=== PATIENT | male | born 1950 | race Caucasian/White ===

== ENCOUNTER 2017-09-23 11:12 | Emergency (ER) | payer OTHER ==
[~2017-09-23] VITALS: Ht 167.6 cm; Wt 122.5 kg
[~2017-09-23 11:12] MED LIST: ASPIRIN325; ASPIRIN325 PO; BACTRIM DS TAB1 EACH PO; BENADRYL25 MG PO; CARVEDILOL6.25 MG; COZAAR 50 MG TA50 M1 PO; CYCLOBENZAPRINE5 MG PO; ETODOLAC 400 M400 M1; GLUCOPHAGE500 MG PO; GLUCOTROL5 MG PO; HALDOL 0.5 MG0.5 MG PO; HALOPERIDOL 5 MG5 M1; HALOPERIDOL 5 MG5 M1 PO; HYDROCHLOROTHIA25 M1; HYDROCODON-ACE1 EAC8 PO; HYDROCODONE-AP1 EAC6 PO; HYTRIN 2MG CAPSU2 M1; IMDUR 30 MG TAB30 M1 PO; LEVAQUIN 500 M500 M2 PO; LOPRESSOR50 PO; NEURONTIN 300300 M1 PO; NITROGLYCERIN0.4 MG PO; PERCOCET 5-3251 EACH; PERCOCET PO; POTASSIUM CITRATE PO; PRAVACHOL40 MG PO; PREDNISONE 10 M10 MG PO; PROTONIX40 M1 PO; PROZAC 20 MG20 M1; PROZAC 20 MG20 MG PO; PYRIDIUM200 MG PO; ROBAXIN 750 MG750 M1 PO; STOOL SOFTENER1 EAC2
[2017-09-23] MEDS ORDERED: PREDNISONE 20 M20 MG PO (12:33)
[2017-09-23] MEDS ORDERED: ZPAK PO (12:33)
[2017-09-23] MEDS ORDERED: HYDROCODONE-AP1 EAC6 PO (12:33)
[2017-09-23 13:00] VITALS: BP 154/70
== END 2017-09-23 13:01 | disposition home or self-care (01) ==
LOC: M.ERS 11:12
DX: J44.1 Chronic obstructive pulmonary disease with (acute) exacerbation (principal); M25.50 Pain in unspecified joint; I10 Essential (primary) hypertension; E11.9 Type 2 diabetes mellitus without complications; I25.2 Old myocardial infarction; Z88.1 Allergy status to other antibiotic agents; Z88.6 Allergy status to analgesic agent

== ENCOUNTER 2018-01-28 18:52 | Emergency (ER) | payer OTHER ==
[~2018-01-28] VITALS: Ht 167.6 cm; Wt 127.0 kg
[~2018-01-28 18:52] MED LIST changes: +PREDNISONE 20 M20 MG PO; +ZPAK PO
[2018-01-28 19:46] LABS: ABSOLUTE BASOPHILS 0.1 thou/uL (0.0-0.2); ABSOLUTE EOSINOPHILS 0.1 thou/uL (0.0-0.7); ABSOLUTE LYMPHOCYTES 2.5 thou/uL (0.8-5.3); ABSOLUTE MONOCYTES 0.6 thou/uL (0.0-1.2); ABSOLUTE NEUTROPHILS 6.6 thou/uL (1.6-8.1); BASOPHILS 0.6 %; EOSINOPHILS 1.1 %; HEMATOCRIT 44.9 % (42.0-52.0); HEMOGLOBIN 15.2 gm/dL (14.0-18.0); LYMPHOCYTES 24.9 %; MCH 33.6 pg (26.0-34.0); MCHC 33.8 g/dL (28.0-37.0); MCV 99.2 fL (80.0-100.0); MONOCYTES 5.9 %; MPV 7.3 fl. (7.2-11.1); NUCLEATED RBCS 0 /100WBC; PLATELET COUNT* 180 thou/uL (150-400); POLYS 67.5 %; RBC 4.52 mil/uL (4.50-6.00); RDW-CV 14.5 % (10.5-14.5); WBC 9.9 thou/uL (4.0-11.0)
[2018-01-28 19:53] LABS: CALCIUM 8.6 mg/dL (8.5-10.1); POTASSIUM 4.6 mmol/L (3.5-5.1)
[2018-01-28 19:58] LABS: ALBUMIN 3.2 g/dL (3.4-5.0); TOTAL BILIRUBIN 0.5 mg/dL (<0.1-1.0)
[2018-01-28] MEDS ORDERED: PREDNISONE 20 M20 M1 PO (20:23)
[2018-01-28] MEDS ORDERED: NORCO 5-325 TA1 EACH PO (20:23)
[2018-01-28] MEDS ORDERED: FLEXERIL PO (20:23)
[2018-01-28 20:41] VITALS: BP 140/78
== END 2018-01-28 20:43 | disposition home or self-care (01) ==
LOC: M.ERS 18:52
PROVIDERS: Family Medicine
DX: M54.32 Sciatica, left side (principal); I10 Essential (primary) hypertension; G47.30 Sleep apnea, unspecified; E11.9 Type 2 diabetes mellitus without complications; F17.210 Nicotine dependence, cigarettes, uncomplicated; Z88.1 Allergy status to other antibiotic agents; Z88.8 Allergy status to other drugs, medicaments and biological substances; Z95.1 Presence of aortocoronary bypass graft; Z87.442 Personal history of urinary calculi

== ENCOUNTER 2018-03-22 11:20 | Inpatient (IN) | payer OTHER ==
[~2018-03-22] VITALS: Ht 167.6 cm; Wt 125.6 kg
[~2018-03-22 11:20] MED LIST changes: +FLEXERIL PO; +NORCO 5-325 TA1 EACH PO; +PREDNISONE 20 M20 M1 PO
[2018-03-22 11:25] VITALS: BP 184/85
[2018-03-22 12:05] LABS: HEMATOCRIT 44.3 % (42.0-52.0); HEMOGLOBIN 14.9 gm/dL (14.0-18.0); MCH 33.3 pg (26.0-34.0); MCHC 33.6 g/dL (28.0-37.0); MCV 99.2 fL (80.0-100.0); MPV 7.5 fl. (7.2-11.1); NUCLEATED RBCS 0 /100WBC; PLATELET COUNT* 153 thou/uL (150-400); RBC 4.47 mil/uL (4.50-6.00); RDW-CV 14.1 % (10.5-14.5); WBC 12.3 thou/uL (4.0-11.0)
[2018-03-22 12:15] LABS: CALCIUM 8.6 mg/dL (8.5-10.1); CREATININE 1.1 mg/dL (0.6-1.3); POTASSIUM 4.3 mmol/L (3.5-5.1)
[2018-03-22 12:19] LABS: ALBUMIN 3.2 g/dL (3.4-5.0); MAGNESIUM 1.4 mg/dL (1.8-2.4); TOTAL BILIRUBIN 1.8 mg/dL (<0.1-1.0); TOTAL PROTEIN 7.8 g/dL (6.4-8.2)
[2018-03-22 12:24] LABS: BE -1.8 mmol/L (-2 to +3); HCO3 20.2 mmol/L (22.0-26.0); PCO2 28.1 mmHg (35.0-45.0); pH 7.474 (7.340-7.450)
[2018-03-22 12:36] LABS: ABSOLUTE EOSINOPHILS 0.1 thou/uL (0.0-0.7); ABSOLUTE LYMPHOCYTES 1.2 thou/uL (0.8-5.3)
[2018-03-22 12:37] LABS: PLATELET ESTIMATE ADEQUATE
[2018-03-22 15:17] LABS: URINE BILIRUBIN NEGATIVE (Negative); URINE BLOOD 2+ (Negative); URINE CLARITY CLOUDY; URINE COLOR ORANGE; URINE GLUCOSE-RANDOM 1+ (Negative); URINE KETONES 1+ (Negative); URINE PROTEIN 1+ (Negative)
[2018-03-22 15:19] LABS: URINE LEUKOCYTES-REFLEX 3+ (Negative); URINE NITRITE-REFLEX POSITIVE (Negative)
[2018-03-22 15:26] LABS: BACTERIA-REFLEX >30 Many /HPF (None Seen); CASTS None Seen /LPF (None Seen); CRYSTALS None Seen /LPF (None Seen); SQUAMOUS NONE SEEN /LPF (0-3); URINE RBC 3-10 Few /HPF (0-2); URINE WBC-REFLEX >25 Many /HPF (0-5)
[2018-03-22 15:29] LABS: APTT 29.8 Seconds (25.0-31.3); INR 1.1; PROTIME 11.6 Seconds (9.20-11.50)
[2018-03-22 15:42] LABS: NT-PRO BRAIN NAT PEPTIDE 1300 pg/mL (<300); TROPONIN-I LEVEL <0.06 ng/mL (<0.06)
[2018-03-22 17:00] VITALS: BP 154/88
[2018-03-22 17:20] VITALS: BP 139/76
--- NOTE | 2018-03-22 18:28 | NUR ---
ASSUMED PT CARE AT 0730, FULL ASSESMENT DONE CHARTED. PT A/O X4, DENIES PAIN, STATES "I JUST FEEL BAD", NO FEVER, ALL OTHER VSS, SR/BBB ON THE MONITOR. PT PROVIDED WITH DINNER, GF AT BEDSIDE, BED ALARM ON, PT INSTRUCED ON USE OF CALL LIGHT. ADMISSION HX AND ASSESMENT DONE CHARTED. WILL CONTINUE WITH PLAN OF CARE.
--- NOTE | 2018-03-22 18:48 | NUR ---
PT ARRIVED TO ROOM 214 FROM ER AT APPROX 1710, PT A/O X4, DENIES PAIN, STATES "I JUST FEEL BAD", AFEBRILE, ALL OTHER VSS, SR/BBB ON THE MONITOR. PT PROVIDED WITH DINNER, GF AT BEDSIDE, BED ALARM ON, PT INSTRUCTED ON USE OF CALL LIGHT. ADMISSION HX AND ASSESMENT DONE CHARTED. WILL CONTINUE WITH PLAN OF CARE.
[2018-03-22 19:30] VITALS: BP 142/77
[2018-03-22 20:01] LABS: MAGNESIUM 1.6 mg/dL (1.8-2.4)
[2018-03-23 04:00] VITALS: BP 169/93
[2018-03-23 05:16] LABS: HEMATOCRIT 41.1 % (42.0-52.0); HEMOGLOBIN 13.7 gm/dL (14.0-18.0); MCH 33.7 pg (26.0-34.0); MCHC 33.4 g/dL (28.0-37.0); MCV 100.9 fL (80.0-100.0); MPV 8.1 fl. (7.2-11.1); RBC 4.08 mil/uL (4.50-6.00); RDW-CV 13.7 % (10.5-14.5); WBC 14.6 thou/uL (4.0-11.0)
[2018-03-23 05:47] LABS: ALBUMIN 2.9 g/dL (3.4-5.0); CREATININE 0.8 mg/dL (0.6-1.3); MAGNESIUM 2.3 mg/dL (1.8-2.4); POTASSIUM 4.1 mmol/L (3.5-5.1); TOTAL BILIRUBIN 0.8 mg/dL (<0.1-1.0); TOTAL PROTEIN 6.8 g/dL (6.4-8.2)
[2018-03-23 08:00] VITALS: BP 156/94
--- NOTE | 2018-03-23 08:11 | NUR ---
RECEIVED REPORT AND ASSUMED CARE AT 1900. VSS. CARDIAC MONITORING IN PLACE, PT DENIES ANY COMPLAINTS OF PAIN. ASSESSMENT COMPLETED CHARTED. DISCUSSED PLAN OF CARE WITH PT, VERBALIZED UNDERSTANDING. MEDICATION ADMIN PER ORDERS. PT UP WITH ASSIST, ON RA WHILE AWAKE, USES CPAP AT [facility]. BED LOCKED IN LOWEST POSITION, CALL LIGHT WIHTIN REACH, BED ALARM ON. HOURLY ROUDNING COMPLETED AND ALL NEEDS MET. WILL CONTINUE TO MONITOR
[2018-03-23 12:12] VITALS: BP 152/87
[2018-03-23 16:00] VITALS: BP 147/75
--- NOTE | 2018-03-23 17:01 | EKG ---
[place] [address] ELECTROCARDIOGRAM REPORT Name: YOSEF LAWSON Room: [address] ADM IN M.R.#: [id number] Admission: 03/22/18 Attend Phys: Wilfred Campbell, Discharge: Date of : 50 Report #: [id number] THIS REPORT FOR: //name// [facility] ED Test Date: 2018-03-22 Test Time: 12:26:51 Pat Name: YOSEF LAWSON Department: Room: [facility] Gender: M Project Systems Engineer: RAFFY : 1950 Requested By: Vane Holder Order Number: [id number] MD: Emmanuel Reyez Measurements Intervals [place] Rate: 70 P: -12 [place]: 208 QRS: -68 QRSD: 145 T: 5 QT: 462 QTc: 499 Interpretive Statements Sinus rhythm Right bundle branch block Inferior infarct, old Compared to ECG 03/19/2016 13:49:56 First degree AV block no longer present Myocardial infarct finding still present Electronically Signed On 03-23-2018 17:01:00 CDT by Emmanuel Reyez [email or web address] <ELECTRONICALLY SIGNED> By: Emmanuel Reyez MD, FACC 03/23/18 1701 1226 1226 Emmanuel Reyez MD, [facility] /EPI
--- NOTE | 2018-03-23 18:54 | NUR ---
PATIENT RESTING IN BED. UP WITH ASSIST X1. IV FLUIDS PER ORDERS. NEW RIGHT AC IV. TJNET HAS REMAINED FEBRILE TODAY BUT HAS C/O PERIODIC CHILLS. HOURLY ROUNDING COMPLETDFOR PATIENT SAFETY.
[2018-03-23 20:03] VITALS: BP 180/90
[2018-03-24] VITALS: BP 129/71
[2018-03-24 04:00] VITALS: BP 157/87
[2018-03-24 04:53] LABS: HEMATOCRIT 43.5 % (42.0-52.0); HEMOGLOBIN 14.5 gm/dL (14.0-18.0); MCH 33.3 pg (26.0-34.0); MCHC 33.3 g/dL (28.0-37.0); MCV 99.9 fL (80.0-100.0); MPV 7.6 fl. (7.2-11.1); RBC 4.35 mil/uL (4.50-6.00); RDW-CV 13.8 % (10.5-14.5); WBC 10.6 thou/uL (4.0-11.0)
--- NOTE | 2018-03-24 05:35 | NUR ---
RECEIVED REPORT AND ASSUMED CARE AT 1900. LOW GRADE FEVER, OTHERWISE VSS. CARDIAC MONITORING IN PLACE. PT NAUSEATED, PHYSICIAN NOTIFIED. ORDERS RECEIVED AND PRN MEDICATION ADMIN. PT UP WITH ASSIST, ON 2L NC. PATIENT MAINTAINED FEVER THROUGH SHIFT, PRN MEDICATION ADMIN, PHYSICIAN NOTIFIED. MEDICATION ADMIN PER EMAR. BED LOCKED IN LOWEST POSITION, CALL LIGHT WITHIN REACH. BED ALARM ON. PT WEARS CPAP AT [facility] AT HOME, REFUSING TO WEAR THIS EVENING. HOURLY ROUNDING COMPLETED AND ALL NEEDS MET. WILL CONTINUE TO MONITOR
[2018-03-24 05:46] LABS: ANION GAP 8 mmol/L (7-16); BUN 17 mg/dL (7-18); CALCIUM 7.9 mg/dL (8.5-10.1); CHLORIDE 101 mmol/L (98-107); CO2 24 mmol/L (21-32); CREATININE 1.1 mg/dL (0.6-1.3); GLUCOSE 151 mg/dL (70-99); MAGNESIUM 1.7 mg/dL (1.8-2.4); POTASSIUM 4.3 mmol/L (3.5-5.1); SODIUM 133 mmol/L (136-145); TROPONIN-I LEVEL <0.06 ng/mL (<0.06)
[2018-03-24 08:00] VITALS: BP 136/75
[2018-03-24 11:39] VITALS: BP 103/62
--- NOTE | 2018-03-24 12:12 | NUR ---
Pt is A&O. Resides at home with his S/O. SO in room at bedside and is too very sick and reports continuous vomitting. Pt uses a cane for mobility. No hx of HH or SNF. No home o2. [facility]. Goal is to return home at dc, and Pt wants HH. CM to fax dc orders to [facility] [place] [phone], p: [phone].
[2018-03-24 15:41] VITALS: BP 145/81
--- NOTE | 2018-03-24 18:56 | NUR ---
BIGG TRANSFERING TO ROOM 109. REPORT CALLED TO RECIEVING RN. HOURLY ROUNDING COMPLETD FOR PATIENT SAFETY. VITAL SIGNS STABLE. PATIENT EDUCATED IN THE NEED TO UTILIZE CPAP TONIGHT. BIGG GIRLFRIEN SENT HOME WITH DAUGHTER.
[2018-03-24 19:50] VITALS: BP 113/61
--- NOTE | 2018-03-24 19:50 | NUR ---
PATIENT ARRIVED ON UNIT AT 1950. ASSISTED TO UNIT BED. ORIENTED TO UNIT AND CONTROLS. VITAL SIGNS STABLE ON ROOM AIR. IV PATENT AND INFUSING IN THE RIGHT AC. DENIES PAIN OR NAUSEA. CALL LIGHT WITHIN REACH. NURSING WILL CONTINUE TO MONITOR.
[2018-03-25] VITALS: BP 138/54
[2018-03-25 04:10] VITALS: BP 149/85
[2018-03-25 04:25] LABS: HEMATOCRIT 38.6 % (42.0-52.0); HEMOGLOBIN 13.1 gm/dL (14.0-18.0); MCH 33.9 pg (26.0-34.0); MCV 99.7 fL (80.0-100.0); MPV 8.1 fl. (7.2-11.1); RBC 3.88 mil/uL (4.50-6.00); RDW-CV 13.8 % (10.5-14.5); WBC 8.8 thou/uL (4.0-11.0)
[2018-03-25 04:45] LABS: ALBUMIN 2.3 g/dL (3.4-5.0); CALCIUM 7.4 mg/dL (8.5-10.1); MAGNESIUM 1.4 mg/dL (1.8-2.4); POTASSIUM 3.8 mmol/L (3.5-5.1); TOTAL BILIRUBIN 0.8 mg/dL (<0.1-1.0); TOTAL PROTEIN 6.3 g/dL (6.4-8.2)
--- NOTE | 2018-03-25 05:00 | NUR ---
PATIENT REMAINS ALERT AND ORIENTED X4 THROUGHOUT SHIFT. VITAL SIGNS STABLE. CPAP IN PLACE THROUGOUT SHIFT. IV PATENT IN THE LEFT AC SALINE LOCKED. PATIENT IS HAVING TROUBLE TRANFERING STATING HE HAS BEEN FEELING WEAK. PAIN MANAGED WITH PO MEDICATION PER ORDERS. DENIES NAUSEA. TOLERATING DIET. HAS BEEN RESTLESS THROUGOUT NIGHT. BED ALARM IN PLACE. CALL LIGHT WITHIN REACH. NURSING WILL CONTINUE TO MONITOR.
[2018-03-25 08:00] VITALS: BP 158/85
--- NOTE | 2018-03-25 14:06 | NUR ---
Nutrition: Pt seen for high BMI. Pt was sleeping soundly at time of visit. BMI: 44.7. RD left handouts on wt mgmt on pt's bedside table. RD available if further education is desired. Low risk.
[2018-03-25 16:37] VITALS: BP 140/76
--- NOTE | 2018-03-25 18:17 | NUR ---
PATIENT HAS BEEN ALERT AND ORIENTED TODAY VERY PLEASANT. UP WITH STAND BY ASSIST AND USES THE URINAL. PATIENT HAS HAD STABLE VITAL SIGNS ON ROOM AIR TODAY. HAS HAD NO COMPLAINTS OF PAIN TODAY. CALL LIGHT IS IN REACH, WILL CONTINUE TO MONITOR.
[2018-03-25 21:00] VITALS: BP 131/83
[2018-03-26] VITALS: BP 114/60
[2018-03-26 04:00] VITALS: BP 142/63
[2018-03-26 04:18] LABS: HEMATOCRIT 40.4 % (42.0-52.0); HEMOGLOBIN 13.6 gm/dL (14.0-18.0); MCH 33.5 pg (26.0-34.0); MCHC 33.6 g/dL (28.0-37.0); MPV 8.2 fl. (7.2-11.1); RBC 4.04 mil/uL (4.50-6.00); RDW-CV 13.7 % (10.5-14.5); WBC 8.9 thou/uL (4.0-11.0)
[2018-03-26 04:29] LABS: CALCIUM 8.1 mg/dL (8.5-10.1); CREATININE 0.9 mg/dL (0.6-1.3); MAGNESIUM 1.7 mg/dL (1.8-2.4); POTASSIUM 4.3 mmol/L (3.5-5.1)
--- NOTE | 2018-03-26 05:11 | NUR ---
ASSUMED PT CARE AT 1930. NURSING ASSESSMENT COMPLETED AT START OF SHIFT. PT C/O FREQUENT DRY COUGH, WHEEZY/COARSE LUNG SOUNDS. NEW ORDERS FOR DUONEB BREATHING TREATMENTS. PT REFUSED CPAP THIS SHIFT. HOURLY ROUNDING COMPLETED. HIGH FALL PRECAUTIONS IN PLACE. CALL LIGHT WITHIN REACH.
[2018-03-26 08:00] VITALS: BP 110/68
[2018-03-26 15:42] VITALS: BP 113/68
--- NOTE | 2018-03-26 17:01 | NUR ---
SAW PT. HE WAS UP IN CHAIR. SON,WALTER AT BEDSIDE. DISCUSSED RECOMMENDATIONS OF THAT HE GO TO SNF AT DISCHARGE DUE TO WEAKNESS AND DECREASED WALKING DISTANCE YESTERDAY. HE SAID HE'S NOT TOO MUCH IN FAVOR OF THAT. HE THOUGHT HE WOULD LIKE HOME HEALTH. HE SAID HE DID NOT HAVE THERAPY TODAY. EFRAIN SPOKE WITH LICHA. SHE SAID PT.WAS TRIAGED TODAY DUE TO SO MANY JT.PT.S. SHE WILL PUT HIM ON LIST FOR FIRST THING IN THE AM. LEFT LIST OF IN NETWORK FACILITIES WITH PT. SON SAID HE COULD PROBABLY STAY A FEW DAYS WITH HIS DAD. CM WILL FOLLOW.
--- NOTE | 2018-03-26 17:11 | NUR ---
PT STATED HE DIDN'T FEEL WELL BUT WAS UNABLE TO DESCRIBE. PT HAS SAT IN CHAIR ALL DAY. AFEBRILE. PT ABLE TO MAKE NEEDS KNOWN, CALL LIGHT IN REACH
[2018-03-26 20:45] VITALS: BP 111/61
[2018-03-26 23:53] VITALS: BP 133/62
[2018-03-27 03:52] VITALS: BP 136/71
--- NOTE | 2018-03-27 05:17 | NUR ---
PATIENT REMAINS ALERT AND ORIENTED X4 THROUGHOUT SHIFT. VITAL SIGNS STABLE ON 2 LITERS OF OXYGEN PER NASAL CANNULA. IV PATENT IN THE LEFT AC SALINE LOCKED PER ORDERS. DENIES PAIN OR NAUSEA. TRANSFERS STANDBY TO THE CHAIR. TOLERATING DIET. REPOSITIONING SELF IN BED. RESTING COMFORTABLY THROUGHOUT THE NIGHT. CALL LIGHT WITHIN REACH. NURSING WILL CONTINUE TO MONITOR.
[2018-03-27 09:30] VITALS: BP 116/68
[2018-03-27] MEDS ORDERED: ASPIR-LOW81 MG PO (09:34)
[2018-03-27] MEDS ORDERED: MACROBID 100 M100 M1 PO (09:34)
[2018-03-27 11:44] VITALS: BP 116/68
[2018-03-27 11:46] VITALS: BP 116/68
[2018-03-27] MEDS ORDERED: ASPIR 8181 MG PO (12:10)
--- NOTE | 2018-03-27 14:13 | NUR ---
ORDER RECEIVED VIA CM FOR ROLLER WALKER FOR PT. PT HAS NOT BEEN USING RW DURING ADMIT. PT REPORTS USING CANE AT HOME. DISCUSSED POSSIBILITY THAT INSURANCE MAY NOT COVER WALKER WITHOUT DOCUMENTATION TO SUPPORT SAME. PT AND FAMILY DECLINED RW AT THIS TIME AND INDICATED THAT [facility]. RW RETURNED TO CONSIGNMENT CLOSET.
[2018-03-27 14:30] VITALS: BP 116/68
--- NOTE | 2018-03-27 14:33 | NUR ---
PATIENT HAS BEEN ALERT AND ORIENTED TODAY VERY PLEASANT. NO COMPLAINTS OF PAIN TODAY. VITAL SIGNS STABLE ON ROOM AIR TODAY HAS BEEN UP WITH THERAPY TODAY AND DOING WELL. DISCHARGE INSTRUCTIONS GIVEN ALONG WITH PRESCRIPTIONS AND QUESTIONS ANSWERED. PATIENT LEFT VIA WHEEL CHAIR WITH DAUGHTER TO GO HOME.
--- NOTE | 2018-03-27 14:59 | NUR ---
PT.DID MUCH BETTER WITH THERAPY TODAY. HE WALKED WITH HIS CANE WITH THE THERAPIST. WILL BE DISCHARGED WITH HOMEHEALTH. DISCUSSED WITH HIM. HE CHOSE [facility]. SPOKE WITH VISHAL/[facility] AND FAXED HER DISCHARGE ORDERS. ROSHNI CALLED ASKING WHO PT.'S PCP WAS. PT.COULD NOT REMEMBER BUT SAID HE WAS AT THE THE [facility]. CM CALLED TRANSITION NURSE THERE. HAD TO LEAVE A MESSAGE TO CALL CM BACK WITH NAME OF PT.'S
== END 2018-03-27 14:30 | disposition home health service (06) | DRG 872 ==
LOC: M.ERS 11:20 → M.2W 15:01 → M.TBA-ER 15:01 → M.2W 17:08 → M.ORTHSURG 03-24 19:00
PROVIDERS: Internal Medicine; Personal Emergency Response Attendant; ADMIT Family Medicine
PROC: 5A09357 Assistance with Respiratory Ventilation, Less than 24 Consecutive Hours, Continuous Positive Airway Pressure (ICD-10-PCS; principal; 2018-03-25)
DX: A41.9 Sepsis, unspecified organism (principal); N39.0 Urinary tract infection, site not specified; Z68.41 Body mass index [BMI] 40.0-44.9, adult; E44.1 Mild protein-calorie malnutrition; E83.42 Hypomagnesemia; J44.9 Chronic obstructive pulmonary disease, unspecified; I10 Essential (primary) hypertension; E66.01 Morbid (severe) obesity due to excess calories; D75.89 Other specified diseases of blood and blood-forming organs; E11.65 Type 2 diabetes mellitus with hyperglycemia; B96.20 Unspecified Escherichia coli [E. coli] as the cause of diseases classified elsewhere; F17.210 Nicotine dependence, cigarettes, uncomplicated; Z79.84 Long term (current) use of oral hypoglycemic drugs; I25.2 Old myocardial infarction; Z95.1 Presence of aortocoronary bypass graft; Z87.442 Personal history of urinary calculi; Z79.82 Long term (current) use of aspirin; Z79.899 Other long term (current) drug therapy; Z88.1 Allergy status to other antibiotic agents; Z88.8 Allergy status to other drugs, medicaments and biological substances

== ENCOUNTER 2018-06-14 09:16 | Emergency (ER) | payer OTHER ==
[~2018-06-14] VITALS: Ht 167.6 cm; Wt 127.0 kg
[~2018-06-14 09:16] MED LIST changes: +ASPIR 8181 MG PO; +ASPIR-LOW81 MG PO; +MACROBID 100 M100 M1 PO
[2018-06-14] MEDS ORDERED: HYDROCODONE-AP1 EAC6 PO (11:28)
[2018-06-14 11:35] VITALS: BP 100/66
== END 2018-06-14 11:46 | disposition home or self-care (01) ==
LOC: M.ERS 09:16
DX: M54.32 Sciatica, left side (principal); G47.30 Sleep apnea, unspecified; I10 Essential (primary) hypertension; E11.9 Type 2 diabetes mellitus without complications; F17.210 Nicotine dependence, cigarettes, uncomplicated; Z88.1 Allergy status to other antibiotic agents; Z88.8 Allergy status to other drugs, medicaments and biological substances; Z95.1 Presence of aortocoronary bypass graft; Z87.442 Personal history of urinary calculi

== ENCOUNTER 2018-07-14 12:13 | Emergency (ER) | payer OTHER ==
[~2018-07-14] VITALS: Ht 160 cm; Wt 127.0 kg
[2018-07-14 13:59] LABS: ABSOLUTE BASOPHILS 0.1 thou/uL (0.0-0.2); ABSOLUTE EOSINOPHILS 0.2 thou/uL (0.0-0.7); ABSOLUTE LYMPHOCYTES 1.5 thou/uL (0.8-5.3); ABSOLUTE NEUTROPHILS 7.3 thou/uL (1.6-8.1); BASOPHILS 0.8 %; EOSINOPHILS 1.7 %; HEMATOCRIT 46.4 % (42.0-52.0); LYMPHOCYTES 14.9 %; MCH 34.3 pg (26.0-34.0); MCHC 34.5 g/dL (28.0-37.0); MCV 99.3 fL (80.0-100.0); MONOCYTES 9.9 %; MPV 6.9 fl. (7.2-11.1); NUCLEATED RBCS 0 /100WBC; PLATELET COUNT* 183 thou/uL (150-400); POLYS 72.7 %; RBC 4.68 mil/uL (4.50-6.00); RDW-CV 14.3 % (10.5-14.5)
[2018-07-14 14:04] LABS: ANION GAP 12 mmol/L (7-16); BUN 11 mg/dL (7-18); CALCIUM 8.9 mg/dL (8.5-10.1); CHLORIDE 100 mmol/L (98-107); CO2 23 mmol/L (21-32); CREATININE 1.2 mg/dL (0.6-1.3); GLUCOSE 175 mg/dL (70-99); POTASSIUM 4.2 mmol/L (3.5-5.1); SODIUM 135 mmol/L (136-145)
[2018-07-14 14:16] LABS: ALBUMIN 3.6 g/dL (3.4-5.0); ALKALINE PHOSPHATASE 87 U/L (46-116); LIPASE 186 U/L (73-393); NT-PRO BRAIN NAT PEPTIDE 160 pg/mL (<300); SGOT 16 U/L (15-37); SGPT 24 U/L (30-65); TOTAL BILIRUBIN 0.5 mg/dL (<0.1-1.0); TOTAL PROTEIN 7.9 g/dL (6.4-8.2); TROPONIN-I LEVEL <0.06 ng/mL (<0.06)
[2018-07-14 15:46] LABS: URINE BILIRUBIN NEGATIVE (Negative); URINE BLOOD NEGATIVE (Negative); URINE CLARITY CLEAR; URINE COLOR YELLOW; URINE GLUCOSE-RANDOM NEGATIVE (Negative); URINE KETONES NEGATIVE (Negative); URINE LEUKOCYTES-REFLEX NEGATIVE (Negative); URINE NITRITE-REFLEX NEGATIVE (Negative); URINE PROTEIN TRACE (Negative); URINE SPECIFIC GRAVITY 1.025 (1.005-1.030); URINE UROBILINOGEN 0.2 E.U./dl (0.2-1.0)
[2018-07-14] MEDS ORDERED: LEVAQUIN 500 M500 M2 PO (16:03)
[2018-07-14] MEDS ORDERED: CIPROFLOXIN HC2.5 M1 OPHTHALMIC (16:03)
[2018-07-14] MEDS ORDERED: MEDROLDOSEPACK PO (16:04)
[2018-07-14] MEDS ORDERED: VENTOLIN HFA 1818 GM INH (16:04)
[2018-07-14 16:29] VITALS: BP 110/66
--- NOTE | 2018-07-15 16:51 | EKG ---
[place] [address] ELECTROCARDIOGRAM REPORT Name: YOSEF LAWSON Room: [facility] [place] [facility].#: [id number] Admission: 07/14/18 Attend Phys: Discharge: 07/14/18 Date of : 50 Report #: [id number] THIS REPORT FOR: //name// [facility] ED Test Date: 2018-07-14 Test Time: 14:33:40 Pat Name: YOSEF LAWSON Department: Room: Gender: M Spinning Machine Operator: PHAM : 1950 Requested By: Katalina Rucker Order Number: [id number] MD: Emmanuel Reyez Measurements Intervals [place] Rate: 61 P: -5 [place]: 252 QRS: -75 QRSD: 146 T: 5 QT: 445 QTc: 449 Interpretive Statements Sinus rhythm Prolonged NV interval Right bundle branch block Inferior infarct, old Compared to ECG 03/22/2018 12:26:51 First degree AV block now present Myocardial infarct finding still present Electronically Signed On 07-15-2018 16:50:57 MECHANIC HELPER by Emmanuel Reyez [email or web address] <ELECTRONICALLY SIGNED> By: Emmanuel Reyez MD, [facility] 07/15/18 9030 1433 1433 Emmanuel Reyez MD, [facility] /EPI
== END 2018-07-14 16:29 | disposition home or self-care (01) ==
LOC: M.ERS 12:13
PROVIDERS: Nurse Practitioner Family
DX: J44.9 Chronic obstructive pulmonary disease, unspecified (principal); H10.9 Unspecified conjunctivitis; J06.9 Acute upper respiratory infection, unspecified; I10 Essential (primary) hypertension; G47.30 Sleep apnea, unspecified; E11.9 Type 2 diabetes mellitus without complications; F17.210 Nicotine dependence, cigarettes, uncomplicated; Z88.1 Allergy status to other antibiotic agents; Z88.8 Allergy status to other drugs, medicaments and biological substances; Z87.442 Personal history of urinary calculi

== ENCOUNTER 2018-07-30 14:26 | Emergency (ER) | payer OTHER ==
[~2018-07-30] VITALS: Ht 167.6 cm; Wt 122.5 kg
[~2018-07-30 14:26] MED LIST changes: +CIPROFLOXIN HC2.5 M1 OPHTHALMIC; +MEDROLDOSEPACK PO; +VENTOLIN HFA 1818 GM INH
[2018-07-30 15:33] LABS: INFLUENZA A ANTIGEN None Detected (None Detect); INFLUENZA B ANTIGEN None Detected (None Detect)
[2018-07-30 15:36] LABS: ABSOLUTE EOSINOPHILS 0.2 thou/uL (0.0-0.7); ABSOLUTE LYMPHOCYTES 2.1 thou/uL (0.8-5.3); ABSOLUTE MONOCYTES 0.6 thou/uL (0.0-1.2); ABSOLUTE NEUTROPHILS 6.6 thou/uL (1.6-8.1); BASOPHILS 0.5 %; EOSINOPHILS 1.8 %; HEMATOCRIT 42.1 % (42.0-52.0); HEMOGLOBIN 14.8 gm/dL (14.0-18.0); LYMPHOCYTES 22.1 %; MCH 34.8 pg (26.0-34.0); MCHC 35.1 g/dL (28.0-37.0); MCV 99.1 fL (80.0-100.0); MONOCYTES 6.5 %; MPV 7.1 fl. (7.2-11.1); NUCLEATED RBCS 0 /100WBC; PLATELET COUNT* 162 thou/uL (150-400); POLYS 69.1 %; RBC 4.25 mil/uL (4.50-6.00); RDW-CV 14.2 % (10.5-14.5); WBC 9.5 thou/uL (4.0-11.0)
[2018-07-30 15:46] LABS: ANION GAP 8 mmol/L (7-16); BUN 10 mg/dL (7-18); CALCIUM 8.9 mg/dL (8.5-10.1); CHLORIDE 103 mmol/L (98-107); CO2 25 mmol/L (21-32); CREATININE 0.9 mg/dL (0.6-1.3); GLUCOSE 137 mg/dL (70-99); POTASSIUM 4.1 mmol/L (3.5-5.1); SODIUM 136 mmol/L (136-145)
[2018-07-30 15:53] LABS: ALBUMIN 3.1 g/dL (3.4-5.0); ALKALINE PHOSPHATASE 68 U/L (46-116); LIPASE 232 U/L (73-393); SGOT 14 U/L (15-37); SGPT 24 U/L (30-65); TOTAL BILIRUBIN 0.4 mg/dL (<0.1-1.0); TOTAL PROTEIN 6.9 g/dL (6.4-8.2); TROPONIN-I LEVEL <0.06 ng/mL (<0.06)
[2018-07-30] MEDS ORDERED: ONDANSETRON HCL4 M2 PO (15:59)
[2018-07-30] MEDS ORDERED: ZPAK PO (15:59)
[2018-07-30 16:15] VITALS: BP 142/73
--- NOTE | 2018-07-30 17:51 | EKG ---
[place] [address] ELECTROCARDIOGRAM REPORT Name: YOSEF LAWSONITH Room: [facility].#: [id number] Admission: 07/30/18 Attend Phys: Discharge: 07/30/18 Date of : 50 Report #: [id number] THIS REPORT FOR: //name// [facility] ED Test Date: 2018-07-30 Test Time: 15:09:08 Pat Name: YOSEF LAWSON Department: Room: Gender: M Radio Division Lieutenant: PHAM : 1950 Requested By: Vane Henry Order Number: [id number] MD: Emmanuel Reyez Measurements Intervals [place] Rate: 61 P: -14 NM: 230 QRS: -69 QRSD: 143 T: 5 QT: 462 QTc: 466 Interpretive Statements Sinus rhythm Prolonged NM interval Right bundle branch block Inferior infarct, old Baseline wander in lead(s) V4 Compared to ECG 07/14/2018 14:33:40 No significant changes Electronically Signed On 07-30-2018 17:51:46 PLANISHING PRESS OPERATOR by Emmanuel Reyez [email or web address] <ELECTRONICALLY SIGNED> By: Emmanuel Reyez MD, FACC 07/30/18 1751 1509 1509 Emmanuel Reyez MD, [facility] /EPI
== END 2018-07-30 16:16 | disposition home or self-care (01) ==
LOC: M.ERS 14:26
PROVIDERS: Physician Assistant
DX: J40 Bronchitis, not specified as acute or chronic (principal); G47.30 Sleep apnea, unspecified; E11.9 Type 2 diabetes mellitus without complications; F17.210 Nicotine dependence, cigarettes, uncomplicated; Z88.1 Allergy status to other antibiotic agents; Z88.8 Allergy status to other drugs, medicaments and biological substances; Z95.1 Presence of aortocoronary bypass graft; Z87.442 Personal history of urinary calculi

== ENCOUNTER 2019-01-25 11:48 | Emergency (ER) | payer OTHER ==
[~2019-01-25] VITALS: Ht 167.6 cm; Wt 128.4 kg
[~2019-01-25 11:48] MED LIST changes: +ONDANSETRON HCL4 M2 PO
[2019-01-25] MEDS ORDERED: MELATONIN1 MG PO (11:56)
[2019-01-25] MEDS ORDERED: PREDNISONE 20 M20 M1 PO (12:37)
[2019-01-25 12:50] VITALS: BP 145/76
--- NOTE | 2019-01-26 16:05 | EKG ---
[place] [address] ELECTROCARDIOGRAM REPORT Name: YOSEF LAWSON Room: [facility].#: [id number] Admission: 01/25/19 Attend Phys: Discharge: 01/25/19 Date of : 50 Report #: [id number] THIS REPORT FOR: //name// [facility] ED Test Date: 2019-01-25 Test Time: 11:56:00 Pat Name: YOSEF LAWSON Department: Room: Gender: M Lead Java Programmer: : 1950 Requested By: Ang Cummings Order Number: [id number] MD: Juice Manjarrez Measurements Intervals [place] Rate: 64 P: -48 [place]: 263 QRS: -73 QRSD: 148 T: 7 QT: 434 QTc: 448 Interpretive Statements Sinus or ectopic atrial rhythm Prolonged LA interval Right bundle branch block Inferior infarct, old artifact noted Compared to ECG 07/30/2018 15:09:08 Myocardial infarct finding still present Electronically Signed On 01-26-2019 16:05:25 CDT by Juice Manjarrez [email or web address] <ELECTRONICALLY SIGNED> By: Juice Manjarrez MD, [facility] 01/26/19 1605 1156 1156 Juice Manjarrez MD, [facility] /EPI
== END 2019-01-25 12:50 | disposition home or self-care (01) ==
LOC: M.ERS 11:48
DX: L29.9 Pruritus, unspecified (principal); T45.0X5A Adverse effect of antiallergic and antiemetic drugs, initial encounter; I10 Essential (primary) hypertension; E11.9 Type 2 diabetes mellitus without complications; G47.30 Sleep apnea, unspecified; F17.210 Nicotine dependence, cigarettes, uncomplicated; Z87.442 Personal history of urinary calculi; Z88.1 Allergy status to other antibiotic agents; Z95.1 Presence of aortocoronary bypass graft; Z88.8 Allergy status to other drugs, medicaments and biological substances; Y92.89 Other specified places as the place of occurrence of the external cause

== ENCOUNTER 2019-07-30 12:30 | Emergency (ER) | payer OTHER ==
[~2019-07-30] VITALS: Ht 167.6 cm; Wt 126.1 kg
[~2019-07-30 12:30] MED LIST changes: +MELATONIN1 MG PO
[2019-07-30 13:33] LABS: RBC 4.09 mil/uL (4.50-6.00)
[2019-07-30 13:38] LABS: HEMATOCRIT 40.5 % (42.0-52.0); HEMOGLOBIN 14.3 gm/dL (14.0-18.0); MCHC 35.3 g/dL (28.0-37.0); MPV 7.6 fl. (7.2-11.1); NUCLEATED RBCS 0 /100WBC; PLATELET COUNT* 211 thou/uL (150-400); RDW-CV 13.9 % (10.5-14.5); WBC 10.3 thou/uL (4.0-11.0)
[2019-07-30 13:43] LABS: CALCIUM 8.9 mg/dL (8.5-10.1); POTASSIUM 4.2 mmol/L (3.5-5.1)
[2019-07-30 13:48] LABS: ALBUMIN 3.5 g/dL (3.4-5.0); TOTAL BILIRUBIN 0.5 mg/dL (<0.1-1.0)
[2019-07-30 14:10] LABS: ABSOLUTE BASOPHILS 0.2 thou/uL (0.0-0.2); ABSOLUTE EOSINOPHILS 0.1 thou/uL (0.0-0.7); ABSOLUTE LYMPHOCYTES 1.2 thou/uL (0.8-5.3); ABSOLUTE MONOCYTES 0.6 thou/uL (0.0-1.2); ABSOLUTE NEUTROPHILS 8.1 thou/uL (1.6-8.1); PLATELET ESTIMATE ADEQUATE
[2019-07-30 15:12] LABS: URINE BILIRUBIN NEGATIVE (Negative); URINE BLOOD NEGATIVE (Negative); URINE CLARITY CLEAR; URINE COLOR YELLOW; URINE GLUCOSE-RANDOM NEGATIVE (Negative); URINE KETONES NEGATIVE (Negative); URINE LEUKOCYTES-REFLEX NEGATIVE (Negative); URINE NITRITE-REFLEX NEGATIVE (Negative); URINE PROTEIN NEGATIVE (Negative); URINE SPECIFIC GRAVITY <= 1.005 (1.005-1.030); URINE UROBILINOGEN 0.2 E.U./dl (0.2-1.0)
[2019-07-30] MEDS ORDERED: FLOMAX0.4 MG PO (15:21)
[2019-07-30 15:37] VITALS: BP 142/74
== END 2019-07-30 15:44 | disposition home or self-care (01) ==
LOC: M.ERS 12:30
PROVIDERS: Emergency Medicine Emergency Medical Services; Physician Assistant
DX: N40.1 Benign prostatic hyperplasia with lower urinary tract symptoms (principal); R33.8 Other retention of urine; R30.0 Dysuria; I25.2 Old myocardial infarction; I10 Essential (primary) hypertension; E11.9 Type 2 diabetes mellitus without complications; Z87.442 Personal history of urinary calculi; Z95.1 Presence of aortocoronary bypass graft; F17.210 Nicotine dependence, cigarettes, uncomplicated; Z88.1 Allergy status to other antibiotic agents; Z88.8 Allergy status to other drugs, medicaments and biological substances

== ENCOUNTER 2019-08-15 04:38 | Inpatient (IN) | payer OTHER ==
[~2019-08-15] VITALS: Ht 175.3 cm; Wt 114.1 kg
[~2019-08-15 04:38] MED LIST changes: +FLOMAX0.4 MG PO
[2019-08-15 04:43] VITALS: BP 147/75
[2019-08-15 05:23] LABS: HEMATOCRIT 43.6 % (42.0-52.0); MCH 34.5 pg (26.0-34.0); MCHC 34.3 g/dL (28.0-37.0); MCV 100.5 fL (80.0-100.0); NUCLEATED RBCS 0 /100WBC; PLATELET COUNT* 202 thou/uL (150-400); RBC 4.34 mil/uL (4.50-6.00); RDW-CV 13.7 % (10.5-14.5); WBC 14.4 thou/uL (4.0-11.0)
[2019-08-15 05:24] LABS: BE -1.5 mmol/L (-2 to +3); PCO2 36.4 mmHg (35.0-45.0); pH 7.411 (7.340-7.450)
[2019-08-15 05:25] LABS: PO2 172.2 mmHg (75.0-100.0)
[2019-08-15 05:35] LABS: CALCIUM 8.5 mg/dL (8.5-10.1); POTASSIUM 4.7 mmol/L (3.5-5.1)
[2019-08-15 05:40] LABS: INR 1.1; PROTIME 11.1 Seconds (9.20-11.50)
[2019-08-15 05:46] LABS: ALBUMIN 3.4 g/dL (3.4-5.0); TOTAL BILIRUBIN 0.5 mg/dL (<0.1-1.0); TOTAL PROTEIN 8.2 g/dL (6.4-8.2)
[2019-08-15 05:58] LABS: INFLUENZA A ANTIGEN Positive (Negative); INFLUENZA B ANTIGEN Negative (Negative)
[2019-08-15 06:25] LABS: ABSOLUTE MONOCYTES 0.3 thou/uL (0.0-1.2); ABSOLUTE NEUTROPHILS 12.1 thou/uL (1.6-8.1); METAMYELOCYTES 2 %
[2019-08-15 06:27] LABS: MACROCYTES 1+; PLATELET ESTIMATE ADEQUATE; TOXIC GRANULATION 2+
[2019-08-15 11:00] VITALS: BP 153/77
--- NOTE | 2019-08-15 11:25 | NUR ---
DR. BLACKMON, HOSPITALIST, AT BEDSIDE WITH PATIENT.
[2019-08-15 11:52] LABS: URINE BILIRUBIN NEGATIVE (Negative); URINE BLOOD TRACE (Negative); URINE CLARITY CLEAR; URINE COLOR YELLOW; URINE GLUCOSE-RANDOM NEGATIVE (Negative); URINE KETONES NEGATIVE (Negative); URINE LEUKOCYTES-REFLEX NEGATIVE (Negative); URINE NITRITE-REFLEX NEGATIVE (Negative); URINE PROTEIN 2+ (Negative); URINE SPECIFIC GRAVITY >= 1.030 (1.005-1.030); URINE UROBILINOGEN 0.2 E.U./dl (0.2-1.0)
[2019-08-15 12:11] LABS: SQUAMOUS 0-3 Few /LPF (0-3)
[2019-08-15 12:12] LABS: BACTERIA-REFLEX 1-9 Few /HPF (None Seen); MUCUS 4-6 Moderate strn/LPF (None Seen); URINE RBC 0-2 Rare /HPF (0-2); URINE WBC-REFLEX 0-5 Rare /HPF (0-5)
[2019-08-15 12:13] LABS: CRYSTALS None Seen /LPF (None Seen); HYALINE CASTS 0-3 Few /LPF (None Seen)
--- NOTE | 2019-08-15 13:00 | NUR ---
PT GIVEN CLEAR LIQUID LUNCH TRAY.
[2019-08-15 14:08] VITALS: BP 145/69
[2019-08-15 15:01] VITALS: BP 132/63
--- NOTE | 2019-08-15 15:48 | NUR ---
RECEIEVIED REPORT FROM MELANY RN IN ER OF EXPECTED ADMISSION AT 1400- DX: FLU A WITH HYPOXIA- PT ARRIVED TO ROOM 211 VIA CART, SBA TO BED- PT A&O X4- CONTINENT OF B/B- SBA WITH TRANSFERS- COURSE/WHEEZE LUNG SOUNDS, WET COUGH WITH POOR COUGH EFFORT- VS- 97.6 20 132/63 64 96%ON HF 10L-DYSPNEA NOTED ON EXERTION- ABD SOFT/OBESE/NON-TENDER, BS X4 QUADS- PT REPORTS LAST BM 08/14/19- IV NOTED TO RIGHT AC INTACT, IV ABT GIVEN PRESCIBED AT TIME OF ADMISSION- US OF LE ORDERED AND NOTED TO BE NEGATIVE FOR DVT- BLANCHABLE REDNESS NOTED TO BOTTOM- PT REPORTS DISCOMFORT IN CHEST WITH COUGHING, NO PAIN-CALL LIGHT AND PERSONAL BELONGINGS WITH IN REACH- HOURLY ROUNDS IN PLACE R/T SAFETY/NEEDS- ALL NEEDS MET AT THIS TIME-WCTM
[2019-08-15 19:55] VITALS: BP 125/57
--- NOTE | 2019-08-16 03:18 | NUR ---
ASSUMED CARE OF PT AT 1900. PT IS ALERT AND ORIENTED. VSS. PERBORIS. PT IS ON ROOM AIR. PT IS IN SINUS RYTHM ON THE TELEMETRY. PT IS RESTING COMFORTABLY IN BED. RESPIRATIONS ARE EVEN AND NONLABORED. WILL CONTINUE TO MONITOR PT.
[2019-08-16 04:17] VITALS: BP 120/51
[2019-08-16 04:50] LABS: HEMATOCRIT 37.1 % (42.0-52.0); MCH 34.7 pg (26.0-34.0); MPV 7.5 fl. (7.2-11.1); RBC 3.74 mil/uL (4.50-6.00); RDW-CV 13.5 % (10.5-14.5); WBC 10.4 thou/uL (4.0-11.0)
[2019-08-16 04:55] LABS: CALCIUM 8.2 mg/dL (8.5-10.1); MAGNESIUM 1.8 mg/dL (1.8-2.4); POTASSIUM 4.4 mmol/L (3.5-5.1)
[2019-08-16 08:00] VITALS: BP 137/62
--- NOTE | 2019-08-16 09:23 | NUR ---
ASSUMED CARE OF PT THIS AM AROUND 0715- LIFE SKILLS TRAINER IN PLACE ORDERED, TRACING SR/1ST DEGREE/BBB- UPON ASSESSMENT PT NOTED TO BE RESTING IN BED- PT A&O X4- CONTINENT OF B/B- SBA WITH TRANSFERS FOR SAFETY- COURSE/WHEEZES NOTED- DYSPNEA NOTED ON EXERTION- VSS, O2 SAT 98% ON 5L VIA NC- ABD SOFT/OBESE/NON-TENDER, BS X4 QUADS- LAST BM REPORTED 08/15/19- IV NOTED TO RIGHT AC INTACT, IV ABT INFUSSING PRESCIBED- CLEAR LIQUIDS IN PLACE ORDERED, GOOD INTAKE NOTED- ISOLATION IN PLACE AND MAINTAINED INDICATED R/T FLU- BS MONITORED ORDERED WITH SSI AND METFORMIN PRESCRIBED- CALL LIGHT AND PERSONAL BELONGINGS WITH IN REACH- PT MAKES NEEDS KNOWN- ALL NEEDS MET AT THIS TIME-WCTM
[2019-08-16 12:00] VITALS: BP 108/51
[2019-08-16 16:00] VITALS: BP 129/59
[2019-08-17 00:47] VITALS: BP 138/60
[2019-08-17 04:00] VITALS: BP 136/70
--- NOTE | 2019-08-17 04:53 | NUR ---
ASSUMED CARE OF PT AT 1900. PT IS ALERT AND ORIENTED. VSS. PERRLA. NO COMPLAINTS OF PAIN. PT IS IN SINUS RYTHM ON THE TELEMETRY. PT IS RESTING COMFORTABLY IN BED. RESPIRATIONS ARE EVEN AND NONLABORED. WILL CONTINUE TO MONITOR PT.
[2019-08-17 09:30] VITALS: BP 145/65
[2019-08-17 12:00] VITALS: BP 152/77
[2019-08-17 12:34] LABS: HEMATOCRIT 38.2 % (42.0-52.0); MCH 34.1 pg (26.0-34.0); MCV 100.3 fL (80.0-100.0); MPV 7.2 fl. (7.2-11.1); RBC 3.81 mil/uL (4.50-6.00); WBC 16.2 thou/uL (4.0-11.0)
[2019-08-17 12:43] LABS: CALCIUM 8.3 mg/dL (8.5-10.1); CREATININE 1.1 mg/dL (0.6-1.3); MAGNESIUM 1.6 mg/dL (1.8-2.4); POTASSIUM 4.2 mmol/L (3.5-5.1)
--- NOTE | 2019-08-17 14:57 | NUR ---
Pt is A&O. Resides at home. Independent. Pt has a cane that he uses for mobility. No home o2. [facility] Hx of [facility]. No hx of SNF. Goal is home at ri. Following.
[2019-08-17 16:09] VITALS: BP 114/60
--- NOTE | 2019-08-17 18:14 | NUR ---
ALERT AND ORIENTED X4. UP WITH STAND BY ASSIST AND CANE. DENIES PAIN. O2 SAT REMAINS IN 90'S WITH O2 AT 3L/NC. REMAINS IN SINUS RHYTHM WITH BUNDLE BRANCH BLOCK ON HEART MONITOR. CONTINUES ON STEROID, ANTIBIODIC AND BREATHING TREATMENTS. NO ELEVATED TEMPATURE TODAY. HAS PRODUCTIVE COUGH. LUNG SOUNDS REMAIN DIMINISHED. PATIENT USES CALL LIGHT WHEN NEEDING ASSIST. NEW IV STARTED WTIHOUT DIFFICULTY.
[2019-08-17 20:00] VITALS: BP 152/71
[2019-08-17 21:00] LABS: CALCIUM 8.3 mg/dL (8.5-10.1); CREATININE 1.1 mg/dL (0.6-1.3); MAGNESIUM 1.6 mg/dL (1.8-2.4); POTASSIUM 3.9 mmol/L (3.5-5.1)
[2019-08-18] VITALS: BP 141/61
[2019-08-18 04:00] VITALS: BP 140/75
[2019-08-18 08:10] VITALS: BP 146/68
[2019-08-18] MEDS ORDERED: TAMIFLU75 MG PO (10:42)
[2019-08-18] MEDS ORDERED: PREDNISONE 20 M20 MG PO (10:42)
[2019-08-18] MEDS ORDERED: DOXYCYCLINE 10100 MG PO (10:42)
[2019-08-18] MEDS ORDERED: MUCINEX600 MG PO (10:42)
[2019-08-18 12:00] VITALS: BP 142/63
[2019-08-18 15:46] VITALS: BP 142/63
--- NOTE | 2019-08-18 16:55 | NUR ---
PT DISCHARGED HOME. COPY OF DISCHARGE PAPERWORK TO PT WITH EXPLAINATION. PT VERBALIZED UNDERSTANDING. IV ACCESS REMOVED. PT TAKEN BY WHEELCHAIR TO HIS CAR.
--- NOTE | 2019-08-19 13:51 | EKG ---
[place] [address] ELECTROCARDIOGRAM REPORT Name: YOSEF LAWSON Room: [address] IN M.R.#: [id number] Admission: 08/15/19 Attend Phys: Wilfred Arnold Discharge: 08/18/19 Date of : 50 Date of Service: 08/15/19 0444 Report #: [id number] THIS REPORT FOR: cc: [facility] - Clinic physician unknown [facility] - Clinic physician unknown Anthony Braxton MD [facility] THIS REPORT FOR: //name// [facility] ED Test Date: 2019-08-15 Test Time: 04:44:17 Pat Name: YOSEF LAWSON Department: Room: [facility] Gender: M Pulpwood Contractor: : 1950 Requested By: Lynnette Edmonds Order Number: [id number] : Anthony Braxton Measurements Intervals [place] Rate: 88 P: -4 RI: 246 QRS: -82 QRSD: 140 T: 44 QT: 392 QTc: 475 Interpretive Statements Sinus rhythm Prolonged RI interval Right bundle branch block Inferior infarct, old Probable posterior infarct, acute Compared to ECG 01/25/2019 11:56:00 Ectopic atrial rhythm no longer present Myocardial infarct finding still present Electronically Signed On 08-17-2019 15:56:58 SENIOR FIELD SERVICE ENGINEER by Anthony Braxton [email or web address] <ELECTRONICALLY SIGNED> By: Anthony Braxton MD, [facility] 08/17/19 1556 0444 0444 Anthony Braxton MD, [facility] /EPI
== END 2019-08-18 16:50 | disposition home or self-care (01) | DRG 193 ==
LOC: M.ERS 04:38 → M.2W 06:40 → M.TBA-ER 06:40 → M.2W 14:40
PROVIDERS: Emergency Medicine; Internal Medicine; ADMIT Family Medicine
DX: J10.00 Influenza due to other identified influenza virus with unspecified type of pneumonia (principal); J96.01 Acute respiratory failure with hypoxia; R65.10 Systemic inflammatory response syndrome (SIRS) of non-infectious origin without acute organ dysfunction; J44.1 Chronic obstructive pulmonary disease with (acute) exacerbation; E11.9 Type 2 diabetes mellitus without complications; F17.210 Nicotine dependence, cigarettes, uncomplicated; I25.10 Atherosclerotic heart disease of native coronary artery without angina pectoris; G47.33 Obstructive sleep apnea (adult) (pediatric); E66.01 Morbid (severe) obesity due to excess calories; I50.9 Heart failure, unspecified; Z68.37 Body mass index [BMI] 37.0-37.9, adult; I25.2 Old myocardial infarction; Z79.82 Long term (current) use of aspirin; Z95.1 Presence of aortocoronary bypass graft; Z79.84 Long term (current) use of oral hypoglycemic drugs; Z79.891 Long term (current) use of opiate analgesic; Z79.899 Other long term (current) drug therapy; Z88.1 Allergy status to other antibiotic agents; Z88.8 Allergy status to other drugs, medicaments and biological substances